=== PATIENT | female | born 1995 | race Caucasian/White ===

== ENCOUNTER 2016-11-16 00:25 | Emergency (ER) | payer OTHER ==
[~2016-11-16] VITALS: Ht 154.9 cm; Wt 56.2 kg
[~2016-11-16 00:25] MED LIST: PRENATAL MULTI1 EACH PO
[2016-11-16] MEDS ORDERED: ACETAMINOPHEN500 M4 PO (00:44)
== END 2016-11-16 03:17 | disposition home or self-care (01) ==
LOC: ED 00:25
DX: O20.0 Threatened abortion (principal); O44.11 Complete placenta previa with hemorrhage, first trimester; Z79.899 Other long term (current) drug therapy; Z3A.14 14 weeks gestation of pregnancy
CPT/HCPCS: 76815; 84702; 85025; 86900; 86901; 99284

== ENCOUNTER 2021-06-27 19:37 | Emergency (ER) | payer OTHER ==
[~2021-06-27] VITALS: Ht 154.9 cm; Wt 48.5 kg
[~2021-06-27 19:37] MED LIST changes: +ACETAMINOPHEN500 M4 PO
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
[2021-06-28] MEDS ORDERED: IBU600 MG PO (01:10)
[2021-06-28] MEDS ORDERED: METRONIDAZOLE500 MG PO (01:10)
[2021-06-28] MEDS ORDERED: HYDROCODON-ACE1 EA10 PO (01:10)
[2021-06-28] MEDS ORDERED: DOXYCYCLINE HY100 MG PO (01:10)
== END 2021-06-28 01:46 | disposition home or self-care (01) ==
LOC: ED 19:37
DX: N73.9 Female pelvic inflammatory disease, unspecified (principal)
CPT/HCPCS: 36415; 74177; 76830; 76856; 80053; 81001; 83690; 83735; 84703; 85025; 87210; 87491; 96375; 96376; 99284-25; J0696; J1885; J2270; J2405; Q9967

== ENCOUNTER 2021-08-16 17:35 | Emergency (ER) | payer OTHER ==
[~2021-08-16] VITALS: Ht 154.9 cm; Wt 49.9 kg
[~2021-08-16 17:35] MED LIST changes: +DOXYCYCLINE HY100 MG PO; +HYDROCODON-ACE1 EA10 PO; +IBU600 MG PO; +METRONIDAZOLE500 MG PO
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
[2021-08-16] MEDS ORDERED: AMOX TR-K CLV1 EAC1 PO (19:39)
== END 2021-08-16 20:18 | disposition home or self-care (01) ==
LOC: ED 17:35
DX: J32.9 Chronic sinusitis, unspecified (principal); Z20.822 Contact with and (suspected) exposure to COVID-19
CPT/HCPCS: 87502; 99284; C9803; U0003

== ENCOUNTER 2021-11-30 13:23 | Emergency (ER) | payer OTHER ==
[~2021-11-30] VITALS: Ht 154.9 cm; Wt 52.0 kg
[~2021-11-30 13:23] MED LIST changes: +AMOX TR-K CLV1 EAC1 PO
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
[2021-11-30] MEDS ORDERED: NAPROSYN500 MG PO (17:48)
[2021-11-30] MEDS ORDERED: CEPHALEXIN500 M1 PO (17:48)
== END 2021-11-30 18:04 | disposition home or self-care (01) ==
LOC: ED 13:23
DX: R10.2 Pelvic and perineal pain (principal)
CPT/HCPCS: 36415; 76830; 76856; 80053; 81001; 83690; 84703; 85025; 96374; 96375; 99284-25; J1885; J2405

== ENCOUNTER 2021-12-03 02:02 | Emergency (ER) | payer OTHER ==
[~2021-12-03] VITALS: Ht 154.9 cm; Wt 51.7 kg
[~2021-12-03 02:02] MED LIST changes: +CEPHALEXIN500 M1 PO; +NAPROSYN500 MG PO
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
== END 2021-12-03 02:58 | disposition home or self-care (01) ==
LOC: ED 02:02
DX: R06.00 Dyspnea, unspecified (principal)
CPT/HCPCS: 71046; 99284-25

== ENCOUNTER 2022-01-19 03:17 | Emergency (ER) | payer OTHER ==
[~2022-01-19] VITALS: Ht 154.9 cm; Wt 50.6 kg
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
== END 2022-01-19 06:30 | disposition home or self-care (01) ==
LOC: ED 03:17
DX: R56.9 Unspecified convulsions (principal)
CPT/HCPCS: 36415; 70450; 80053; 83735; 84703; 85025; 87502; 96374; 99285-25; J2060; U0003

== ENCOUNTER 2023-09-18 22:20 | Emergency (ER) | payer OTHER ==
[~2023-09-18] VITALS: Ht 154.9 cm; Wt 52.2 kg
[~2023-09-18 22:20] MED LIST changes: +ADDERALL 15 MG15 MG PO; +CARAFATE1 GM PO; +LIDOCAINE HCL100 ML MT; +NEURONTIN300 MG PO; +NEURONTIN600 MG PO; +ONDANSETRON ODT8 MG PO; +PRILOSEC10 M1 PO; +QVAR REDIHALE10.6 G1 INH; +VENTOLIN HFA18 GM INH
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
[2023-09-18] MEDS ORDERED: HYDROXYZINE HCL25 MG PO (22:38)
[2023-09-19 00:22] VITALS: BP 119/94
== END 2023-09-19 00:22 | disposition home or self-care (01) ==
LOC: ED 22:20
DX: G40.909 Epilepsy, unspecified, not intractable, without status epilepticus (principal)
CPT/HCPCS: 99284

== ENCOUNTER 2023-09-25 23:36 | Emergency (ER) | payer OTHER ==
[~2023-09-25] VITALS: Ht 154.9 cm; Wt 47.7 kg
[~2023-09-25 23:36] MED LIST changes: +HYDROXYZINE HCL25 MG PO
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
[2023-09-26 00:20] LABS: BASOPHILS 0.2 % (0-2); EOSINOPHILS 1.2 % (0-6); HEMATOCRIT 36.4 % (35.0-50.0); HEMOGLOBIN 12.3 g/dL (12.0-18.0); LYMPHOCYTES 14.1 % (24-44); MCH 30.6 (27-36); MCHC 33.8 g/dl (30-36); MCV 90.5 fl (81-99); MONOCYTES 6.7 % (0-12); NEUTROPHILS 77.8 % (39-80); PLATELET COUNT 275 K/uL (140-440); RBC 4.02 M/ul (4.3-5.7); RDW 13.4 (10.5-15.0)
[2023-09-26 00:24] LABS: BILIRUBIN, URINE NEGATIVE (negative); BLOOD/HGB, URINE NEGATIVE (Negative); KETONE, URINE NEGATIVE (Negative); LEUK ESTERASE, URINE NEGATIVE (negative); NITRITE, URINE NEGATIVE (negative)
[2023-09-26 00:29] LABS: PREGNANCY TEST, URINE NEGATIVE (NEG)
[2023-09-26 00:36] LABS: ALBUMIN 3.8 g/dL (3.4-5.0); ALBUMIN/GLOBULIN RATIO 1.19 (1.1-2.4); ALCOHOL, MEDICAL <3 ng/dL (<3); ALKALINE PHOSPHATASE 54 U/L (46-116); ALT (SGPT) 15 U/L (14-59); ANION GAP 8.4 (7-21); AST (SGOT) 13 U/L (15-37); BILIRUBIN, TOTAL 0.2 ng/dL (0.2-1.0); BUN/CREATININE RATIO 9.89 (6.0-28.6); CALCIUM 9.2 mg/dL (8.5-10.1); CARBON DIOXIDE 31 mmol/L (21-32); CHLORIDE 103 mmol/L (98-107); CREATININE, SERUM 0.91 mg/dL (0.55-1.02); GLOMERULAR FILTRATION RATE,EST 89 mL/min (>60); POTASSIUM 3.4 mmol/L (3.5-5.1); UREA NITROGEN 9 mg/dL (7-18)
[2023-09-26 00:38] LABS: AMPHETAMINES, URINE NEGATIVE (NEGATIVE); BARBITURATES, URINE NEGATIVE (NEGATIVE); BENZODIAZEPINE, URINE NEGATIVE (NEGATIVE); BUPRENORPHINE, URINE NEGATIVE (NEGATIVE); CANNABINOID, URINE POSITIVE (NEGATIVE); COCAINE, URINE NEGATIVE (NEGATIVE); ECSTASY, URINE NEGATIVE (NEGATIVE); FENTANYL, URINE NEGATIVE (NEGATIVE); METHADONE, URINE NEGATIVE (NEGATIVE); OPIATES, URINE NEGATIVE (NEGATIVE); OXYCODONE, URINE NEGATIVE (NEGATIVE); PHENCYCLIDINE, URINE NEGATIVE (NEGATIVE)
[2023-09-26 02:38] VITALS: BP 103/64
== END 2023-09-26 02:39 | disposition home or self-care (01) ==
LOC: ED 23:36
PROVIDERS: Internal Medicine
DX: G40.909 Epilepsy, unspecified, not intractable, without status epilepticus (principal)
CPT/HCPCS: 36415; 80053; 80307; 81003; 84703; 85025; 99284; G0480

== ENCOUNTER 2024-01-10 11:38 | Emergency (ER) | payer OTHER ==
[~2024-01-10] VITALS: Ht 154.9 cm; Wt 48.8 kg
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
[2024-01-10 12:01] LABS: BASOPHILS 1.1 % (0-2); HEMOGLOBIN 13.1 g/dL (12.0-18.0); LYMPHOCYTES 19.5 % (24-44); MCH 30.5 (27-36); MCHC 33.5 g/dl (30-36); MONOCYTES 6.9 % (0-12); NEUTROPHILS 71.5 % (39-80); PLATELET COUNT 287 K/uL (140-440); RBC 4.28 M/ul (4.3-5.7); RDW 13.6 (10.5-15.0)
[2024-01-10 12:19] LABS: ABO A; RH POSITIVE
[2024-01-10] MEDS ORDERED: TRANEXAMIC ACID IN NACL,ISO-OS 1,000 MG/100 ML PIGGYBACK IV ONE (12:30)
[2024-01-10 14:46] VITALS: BP 109/74
== END 2024-01-10 14:48 | disposition home or self-care (01) ==
LOC: ED 11:38
PROVIDERS: Emergency Medicine
DX: N93.9 Abnormal uterine and vaginal bleeding, unspecified (principal); N80.9 Endometriosis, unspecified; G40.909 Epilepsy, unspecified, not intractable, without status epilepticus; Z98.51 Tubal ligation status; Z91.011 Allergy to milk products
CPT/HCPCS: 36415; 84703; 85025; 86900; 86901; 96365; 99284-25

== ENCOUNTER 2024-02-15 11:32 | Emergency (ER) | payer OTHER ==
[~2024-02-15] VITALS: Ht 154.9 cm; Wt 50.1 kg
--- OUTSIDE RECORDS SUMMARY | ~2024-02-15 | XMS | Continuity of Care Document ---
Demographics + + + | Address | [address] | | | [place] [address] | + + + | Preferred Language | Unknown | + + + | Marital Status | | + + + | Jainism Affiliation | Unknown | + + + | Race | White | + + + | Ethnic Group | Unknown | + + + Author + + + | Author | [facility] | + + + | Organization | [facility] | + + + | Address | [address] | | | [place] [address] | + + + | Phone | | + + + Care Team Providers + + + + | Care Central Office Trouble Shooter Name | Role | Phone | + + + + Unavailable | Unavailable | + + + + Unavailable | Unavailable | + + + + Allergies No information. Encounters No information. Functional Status No information. Immunizations No information. Medications + + + + | date | description | facility | + + + + | 2023-12-03 00:00 | hydrOXYzine Pamoate 50 MG | [facility] | | | Oral Capsule | | + + + + | 2023-12-03 00:00 | benzonatate 100 MG Oral | [facility] | | | Capsule | | + + + + | 2023-12-03 00:00 | Benzonatate 100 MG Oral | [facility] | | | Capsule | | + + + + | 2023-12-03 00:00 | amoxicillin 875 MG / | [facility] | | | clavulanate 125 MG Oral | | | | Tablet | | + + + + | 2023-12-03 00:00 | Amoxicillin-Pot | [facility] | | | Clavulanate 875-125 MG Oral | | | | Tablet | | + + + + | 2023-12-03 00:00 | hydroxyzine pamoate 50 MG | [facility] | | | Oral Capsule | | + + + + Problems No information. Procedures No information. Results/Labs +--------+--------+ +---------+--------+---------+ | test | date | facility | value | unit | notes | +--------+--------+ +---------+--------+---------+ + + | Result panel 1 | + + + + + + + + + | No Results | (no date) | [facility] | No Results | (missing) | (missing) | | [facility] | | | [facility] | [facility] | | | | + + + + + + + Social History + + + + | date | description | facility | + + + + | 2023-12-04 00:00 | Smoker (finding) | [facility] | + + + + Vital Signs + + + + + | date | measurement | value | units | + + + + + | 2023-12-03 00:00 | BMI | 19.3 | 1 | + + + + + | 2023-12-03 00:00 | BP_diastolic | 64 | mmHg | + + + + + | 2023-12-03 00:00 | BP_systolic | 104 | mmHg | + + + + + | 2023-12-03 00:00 | BSA | 1.5 | 1 | + + + + + | 2023-12-03 00:00 | heart_rate | 1|1| | completed | + + + + + | 2023-12-03 00:00 | heart_rate | 86 | /min | + + + + + | 2023-12-03 00:00 | height_metric | 158.12 | cm | + + + + + | 2023-12-03 00:00 | height_standard | 62.25 | in | + + + + + | 2023-12-03 00:00 | o2_saturation | 99 | % | + + + + + | 2023-12-03 00:00 | temperature_metric | 37.06 | C | | | | | | + + + + + | 2023-12-03 00:00 | | 98.7 | F | | | temperature_standar | | | | | d | | | + + + + + | 2023-12-03 00:00 | weight_metric | 48.25 | kg | + + + + + | 2023-12-03 00:00 | weight_standard | 106.38 | lb | + + + + +"
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
[2024-02-15] MEDS ORDERED: SODIUM CHLORIDE 0.9% 1,000 ML IV ONE (11:45)
[2024-02-15] MEDS ORDERED: HYDROmorphone HCL 1 MG/ML SYR IV ONE ×2 (11:45→12:45)
[2024-02-15] MEDS ORDERED: ondansetron HCL 4 MG/2 ML VIAL IV ONE (11:45)
[2024-02-15 11:58] LABS: BASOPHILS 0.9 % (0-2); HEMATOCRIT 37.4 % (35.0-50.0); HEMOGLOBIN 12.6 g/dL (12.0-18.0); LYMPHOCYTES 22.9 % (24-44); MCH 30.3 (27-36); MCHC 33.7 g/dl (30-36); MCV 89.9 fl (81-99); MONOCYTES 6.1 % (0-12); NEUTROPHILS 69.1 % (39-80); PLATELET COUNT 393 K/uL (140-440); RBC 4.16 M/ul (4.3-5.7); RDW 13.4 (10.5-15.0)
[2024-02-15 12:11] LABS: ALBUMIN 3.9 g/dL (3.4-5.0); ALBUMIN/GLOBULIN RATIO 1.11 (1.1-2.4); ANION GAP 17.1 (7-21); BILIRUBIN, TOTAL 0.4 ng/dL (0.2-1.0); BUN/CREATININE RATIO 8.41 (6.0-28.6); CALCIUM 9.1 mg/dL (8.5-10.1); CREATININE, SERUM 1.07 mg/dL (0.55-1.02); POTASSIUM 3.1 mmol/L (3.5-5.1); PROTEIN, TOTAL 7.4 g/dL (6.4-8.2)
[2024-02-15 12:15] LABS: BILIRUBIN, URINE NEGATIVE (negative); BLOOD/HGB, URINE NEGATIVE (Negative); KETONE, URINE NEGATIVE (Negative); LEUK ESTERASE, URINE NEGATIVE (negative); NITRITE, URINE NEGATIVE (negative); PH, URINE 6.5 (5-7)
[2024-02-15 12:37] LABS: AMPHETAMINES, URINE NEGATIVE (NEGATIVE); BARBITURATES, URINE NEGATIVE (NEGATIVE); BENZODIAZEPINE, URINE NEGATIVE (NEGATIVE); BUPRENORPHINE, URINE NEGATIVE (NEGATIVE); CANNABINOID, URINE POSITIVE (NEGATIVE); COCAINE, URINE NEGATIVE (NEGATIVE); ECSTASY, URINE NEGATIVE (NEGATIVE); FENTANYL, URINE NEGATIVE (NEGATIVE); METHADONE, URINE NEGATIVE (NEGATIVE); OPIATES, URINE NEGATIVE (NEGATIVE); OXYCODONE, URINE NEGATIVE (NEGATIVE); PHENCYCLIDINE, URINE NEGATIVE (NEGATIVE)
[2024-02-15 12:48] LABS: ABO A; ANTIBODY SCREEN NEGATIVE; RH POSITIVE
[2024-02-15] MEDS ORDERED: HYDROXYZINE PAM50 MG PO (13:50)
[2024-02-15] MEDS ORDERED: ONDANSETRON ODT8 MG SL (14:33)
[2024-02-15] MEDS ORDERED: KETOROLAC TROME10 MG PO (14:33)
[2024-02-15 14:38] VITALS: BP 123/82
== END 2024-02-15 14:38 | disposition home or self-care (01) ==
LOC: ED 11:32
PROVIDERS: Emergency Medicine
DX: R10.2 Pelvic and perineal pain (principal); N83.11 Corpus luteum cyst of right ovary; G89.29 Other chronic pain; G40.909 Epilepsy, unspecified, not intractable, without status epilepticus; I48.91 Unspecified atrial fibrillation; Z91.011 Allergy to milk products; Z79.899 Other long term (current) drug therapy
CPT/HCPCS: 36415; 51701; 74177; 76830; 76856; 80053; 80307; 81003; 82553; 83605; 83690; 84703; 85025; 86850; 86900; 86901; 99284-25; G0480; J1171; J2405; J7030; Q9967

== ENCOUNTER 2024-06-30 20:34 | Emergency (ER) | payer OTHER ==
[~2024-06-30] VITALS: Ht 154.9 cm; Wt 51.1 kg
[~2024-06-30 20:34] MED LIST changes: +HYDROXYZINE PAM50 MG PO; +KETOROLAC TROME10 MG PO; +ONDANSETRON ODT8 MG SL
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
[2024-06-30] MEDS ORDERED: ondansetron HCL 4 MG/2 ML VIAL IV ONE (22:30)
[2024-06-30] MEDS ORDERED: MORPHINE SULFATE 4 MG/ML VIAL IV ONE (22:30)
[2024-06-30] MEDS ORDERED: SODIUM CHLORIDE 0.9% 1,000 ML IV ONE (22:30)
[2024-06-30 22:35] LABS: BASOPHILS 0.9 % (0-2); EOSINOPHILS 1.9 % (0-6); HEMATOCRIT 34.4 % (35.0-50.0); HEMOGLOBIN 11.9 g/dL (12.0-18.0); LYMPHOCYTES 28.1 % (24-44); MCH 30.2 (27-36); MCHC 34.7 g/dl (30-36); MONOCYTES 8.6 % (0-12); NEUTROPHILS 60.5 % (39-80); PLATELET COUNT 285 K/uL (140-440); RBC 3.95 M/ul (4.3-5.7); RDW 13.6 (10.5-15.0)
[2024-06-30 22:44] LABS: ALBUMIN 3.8 g/dL (3.4-5.0); ALBUMIN/GLOBULIN RATIO 1.19 (1.1-2.4); ANION GAP 11.7 (7-21); BILIRUBIN, TOTAL 0.2 mg/dL (0.2-1.0); BUN/CREATININE RATIO 13.95 (6.0-28.6); CALCIUM 8.9 mg/dL (8.5-10.1); CREATININE, SERUM 0.86 mg/dL (0.55-1.02); POTASSIUM 3.7 mmol/L (3.5-5.1)
[2024-06-30 22:45] LABS: BILIRUBIN, URINE NEGATIVE (negative); BLOOD/HGB, URINE SMALL (Negative); KETONE, URINE TRACE (Negative); LEUK ESTERASE, URINE NEGATIVE (negative); NITRITE, URINE NEGATIVE (negative)
[2024-06-30 22:54] LABS: EPITHELIAL CELLS, URINE SQUAMOUS 1+ /lpf (0-1+)
[2024-06-30 22:55] LABS: BACTERIA, URINE RARE /hpf (negative); CASTS, URINE NONE SEEN \\lpf; COLLECTION TYPE, URINE CLEAN CATCH; CRYSTALS, URINE NONE SEEN (0-1+); RED BLOOD CELLS, URINE 21-40 /hpf (0-5); REFLEX CULTURE, URINE No (No)
[2024-06-30] MEDS ORDERED: TRANEXAMIC ACID IN NACL,ISO-OS 1,000 MG/100 ML PIGGYBACK IV ONE (23:45)
[2024-06-30] MEDS ORDERED: HYDROCODONE BIT/ACETAMINOPHEN 5/325 MG 1 TAB HOME.PACK PO ONE (23:45)
[2024-06-30] MEDS ORDERED: ONDANSETRON ODT8 MG PO (23:51)
[2024-06-30] MEDS ORDERED: HYDROCODON-ACE1 EA10 PO (23:51)
[2024-07-01 00:27] VITALS: BP 124/84
== END 2024-07-01 00:30 | disposition home or self-care (01) ==
LOC: ED 20:34
PROVIDERS: Family Medicine
DX: N99.820 Postprocedural hemorrhage of a genitourinary system organ or structure following a genitourinary system procedure (principal); Z91.011 Allergy to milk products
CPT/HCPCS: 36415; 74177; 80053; 81001; 85025; 96375; 99284-25; A9270; J2270; J2405; J7030; Q9967

== ENCOUNTER 2025-01-17 13:45 | Emergency (ER) | payer OTHER ==
[~2025-01-17] VITALS: Ht 154.9 cm; Wt 46.2 kg
--- OUTSIDE RECORDS SUMMARY | 2025-01-17 13:50 | XMS ---
PreManage Notification: PATRICK CRUZ Security Sofa Back Upholsterer Events No recent Security Events currently on file CRITERIA MET - Group Notification CARE PROVIDERS -, [facility] Dentist: Crm Developer Current [place] PHONE: [phone] Gaudencio has no Care Guidelines for this patient. E.Veronica VISIT COUNT (12 MO.) 3 JACKELINE Dunlap [facility] TOTAL 6 NOTE: Visits indicate total known visits. ED/C VISIT TRACKING (12 MO.) 01/17/2025 13:46 [facility] [place] TYPE: Emergency COMPLAINT: - BREAST PAIN/LUMP 06/30/2024 20:35 [facility] [place] TYPE: Emergency COMPLAINT: - POST OP PROBLEMS DIAGNOSES: - Allergy to milk products - Postprocedural hemorrhage of a genitourinary system organ or structure following a genitourinary system procedure 06/17/2024 21:04 [facility] [place] TYPE: Emergency DIAGNOSES: - Other acute postprocedural pain - Unspecified abdominal pain - Post-op Problem 03/25/2024 18:08 [employer] [facility] [place] TYPE: Emergency COMPLAINT: - Vaginal Bleeding DIAGNOSES: - Vaginal Bleeding 02/17/2024 11:32 [facility] [place] TYPE: Emergency COMPLAINT: - SENT BY DIAGNOSES: - SENT BY 02/15/2024 11:[address] [facility] [place] TYPE: Emergency COMPLAINT: - ABDOMINAL PAIN DIAGNOSES: - Allergy to milk products - Corpus luteum cyst of right ovary - Epilepsy, unspecified, not intractable, without status epilepticus - Other chronic pain - Other neonatal nurse (current) drug therapy - Pelvic and perineal pain - Unspecified atrial fibrillation INPATIENT VISIT TRACKING (12 MO.) No inpatient visits to display in this time frame [email or web address]
[2025-01-17 15:25] VITALS: BP 138/93
== END 2025-01-17 15:25 | disposition home or self-care (01) ==
LOC: ED 13:45
DX: N64.4 Mastodynia (principal); Z91.0110 Allergy to milk products, unspecified
CPT/HCPCS: 99283